=== PATIENT | male | born 1965 | race Caucasian/White ===

== ENCOUNTER 2016-11-01 04:57 | Inpatient (IN) | payer SELFPAY ==
[~2016-11-01] VITALS: Ht 167.6 cm; Wt 65.4 kg
--- NOTE | ~2016-11-01 | HP ---
ADMIT: 11/01/2016 RM/LOC: 302 [facility] MR#: [id number] [address] [address] VIDHI WEBB [address] [place] [address] History and Physical SEX: M AGE: 51 : 1965 DATE OF SERVICE: CHIEF COMPLAINT: Chest pain. HISTORY OF PRESENT ILLNESS: The patient is a 51-year-old male, we were asked to see regarding an anterior ST-segment elevated myocardial infarction. The patient states that his chest pain began on Monday. He has been having some chest tightness and pain down his left arm. This was not accompanied with any shortness of breath, nausea, vomiting, or other symptoms. It has been going off and on since Monday and when he had his symptoms this morning and they did not improve, he presented to the emergency room. There, he had an EKG which demonstrated an acute anterior ST-segment elevated MT. We are not taking him to the director of cardiac cath lab. In speaking with the patient, he has no previous significant medical history. His cardiac risk factorsinclude the fact that he has had a sister and a father, who have had myocardial infarctions and he is a smoker. He is unaware of any other medical conditions he may have. There were no other complaints. PAST MEDICAL HISTORY: Negative for any surgeries or medical conditions. ALLERGIES: PENICILLIN. CURRENT MEDICATIONS: None. FAMILY HISTORY: Significant for a sister, who had a myocardial infarction and he also thinks may have had a stent and a father who had a myocardial infarction. There were several members with diabetes. SOCIAL HISTORY: The patient smokes 1/2 to 1 pack of cigarettes a day and has done so for 32 years. He has occasional alcohol use. He denies any drug use. He is . REVIEW OF SYSTEMS: Essentially negative other than the chest pain that he had starting on Monday. PHYSICAL EXAMINATION: VITAL SIGNS: Blood pressure 130s over 70s, heart rate in 70s, respirations 16, temperature afebrile. SKIN: [place], warm and dry. ADMIT: 11/01/2016 RM/LOC: 302 [facility] MR#: [id number] [address] [address] VIDHI WEBB [address] [place] [address] History and Physical SEX: M AGE: 51 : 1965 EYES: Sclerae clear. No xanthelasmas. ENT: Oral mucosa is pink and moist. No jugular venous distention or carotid bruits. CHEST: Respirations are even and unlabored. Lungs are clear to auscultation. HEART: Regular rate and rhythm. Normal S1, S2. No murmurs, rubs or gallops. ABDOMEN: Soft and nontender. MUSCULOSKELETAL: Gait is normal. EXTREMITIES: Peripheral pulses palpable. No clubbing, cyanosis or edema. PSYCHIATRIC: Alert and oriented. Mood and affect are appropriate. ASSESSMENT AND PLAN: Acute anterior ST-elevation myocardial infarction. We are going to take the patient to director of cardiac cath lab for further treatment. Keon Braun MD/ memo JOB #: [id number] CC: Keon Braun, Attending Physician Keon Braun, Family Physician
--- NOTE | ~2016-11-01 | ECH ---
Transthoracic Echocardiography Report (TTE) Demographics Patient Name VIDHI WEBB Date of Study 11/01/2016 Patient Number [id number] Visit Number [id number] Date of 1965 Room Number 302 Accession Number [id number] Gender Male Age 51 year(s) Referring King Keon Langford MD Ski Base Trimmer Karla Marshall [facility] Physician Physician Interpreting King Keon Langford MD Textile Screen Printer Physician Supervising Ordering Physician Richie Madera MD/NOY HERNANDEZ Nurse Stress [employer] Conclusions Summary Apical and subcostal images good quality, parasternal images fair. The estimated left ventricular ejection fraction is 40%. Segmental wall motion abnormalities noted. Mild mitral regurgitation by color Doppler. There is mild aortic regurgitation by color Doppler. Mild tricuspid regurgitation by color Doppler. There is mild pulmonary hypertension. The pulmonary pressure (RVSP) is 37 mmHg. Procedure Type of Study TTE procedure:Echo Complete SF. Procedure Date Date: 11/01/2016 Start: 11:11 AM Technical Quality: Adequate visualization Indications:Acute TN. Appropriate Use Criteria: 9 Height: 66 inches Weight: 150 pounds BSA: 1.77 m Rhythm: Within normal limits HR: 70 bpm BP: 129/93 mmHg Allergies - Penicillin. M-Mode/2D Measurements LV Diastolic Dimension: 4.73 cm LV Systolic Dimension: 3.54 cm LV Septum Diastolic: 1.08 cm LV PW Diastolic: 0.89 cm AO Root Dimension: 2.71 cm Cardiac Output: 2.73 l/min LA Dimension: 3.38 cm Cardiac Index: 1.54 l/min*m RV Diastolic Dimension: 2.72 cm LA volume index: 28 ml/m LVOT: 1.9 cm LVOT VTI: 13.78 cm RV Base: 3.1 cm LV Stroke volume: 39.05 ml RV Mid: 2.5 cm LV Stroke volume index: 22.06 ml/m RV Length: 6.9 cm TAPSE: 1.8 cm TDI-S': 12 cm/s Doppler Measurements AV Mean Gradient: 1.68 mmHg MV Peak E-Wave: 0.83 m/s LVOT Peak Velocity: 0.62 m/s MV Peak A-Wave: 0.68 m/s AV Area (Continuity):1.89 cm AV P1/2t: 428.3 msec MV P1/2t: 37.7 msec TR Velocity:2.84 m/s TR Gradient:32.16 mmHg MV Deceleration Time: 130 msec Estimated RAP:5 mmHg MV Area (PHT): 5.84 cm Estimated RVSP: 37 mmHg PV Peak Velocity: 0.57 m/s E' Septal Velocity: 0.13 m/s PV Peak Gradient: 1.3 mmHg Estimated PASP: 37.16 mmHg RA Area: 8.99 cm Findings Left Ventricle The left ventricle is normal in size . Diastolic assessment reveals normal relaxation. Right Ventricle Normal right ventricle structure and function. Left Atrium Normal left atrial size. Right Atrium Normal right atrial size. Mitral Valve Normal mitral valve structure and function. Mild mitral regurgitation by color Doppler. Aortic Valve Normal aortic valve structure and function. There is mild aortic regurgitation by color Doppler. Tricuspid Valve Normal tricuspid valve structure and function. Mild tricuspid regurgitation by color Doppler. There is mild pulmonary hypertension. The pulmonary pressure (RVSP) is 37 mmHg. Pulmonic Valve The pulmonic valve is not well visualized. Pericardial Effusion Epicardial fat pad noted. Miscellaneous Visualized portions of the aortic root and ascending aorta appear normal in size. Pleural Effusion No evidence of pleural effusion. Contractility Score LV regional wall motion:(0-Non visualized 1-Normal 2-Hypokinesis 3-Akinesis 4-Dyskinesis 5-Aneurysm) Signature
--- NOTE | ~2016-11-01 | CATH ---
Cardiac Diagnostic + PCI Report Demographics Patient Name JON Neil Gender Male Date of 1965 Age 51 year(s) Patient Number [id number] Date of Study 11/01/2016 Visit Number [id number] Room Number 302 Corporate ID Ht 167.64 cm Wt 68.04 kg Accession Number [id number] BSA 1.77 m kg/m Referring Richie Madera Primary Physician Physician Performing King Keon Langford MD Secondary Physician Physician Richie Madera MD Diagnostic King Keon Langford MD Assisting Physician Physician Interventional Richie Madera Physician Glove Cleaner Physician Findings and Conclusions Diagnostic Findings and Conclusion Single vessel coronary artery disease with 100% midLAD stenosis. Diagnostic Recommendations Immediate PCI of mLAD. Interventional Findings and Conclusion Successful PCI of mid LAD with a 3.0 x 16mm Synergy drug eluting stent. There was residual plaque with possible thrombus just proximal to the stent. Another 3.5 x 12mm Synergy was placed more proximally in an overlapping fashion. There was transient slow flow after the second stent which responded to intra coronary adenosine. Interventional Recommendations technician terminal and repeater dual antiplatelet therapy, cardiomyopathy treatment, and aggressive risk factor modification. Procedure Description The patient was brought to the diagnostic cardiac catheterization laboratory by freezer laboratory technician personal. Physician deemed procedure as EMERGENT. The planned puncture-incision site(s) were clipped and prepped with ChloraPrep and draped in the usual sterile manner. Conscious sedation, supplemental oxygen, and pain control medications were delivered by a registered nurse under physician guidance. Surface ECG rhythm, blood pressure measurement, and pulse oximetry were monitored throughout the procedure. Arterial access. The right radial access site was infiltrated with lidocaine. The vessel was entered with the Seldinger technique. A 6F sheath was advanced into the vessel and used for catheter placement. Selective left coronary angiography. A JL3.5 catheter was advanced into the left coronary vessel ostium under Fluoroscopic guidance. Contrast was injected by hand. Images were obtained in multiple projections. Selective right coronary angiography. A JR4 catheter was advanced into the right coronary vessel ostium under fluoroscopic guidance. Contrast was injected by hand. Images were obtained in multiple projections. Left heart catheterization with ventriculography. A JR4 catheter was advanced across the aortic valve to the left ventricle under fluoroscopic guidance. Resting hemodynamics were obtained. With the catheter at the left ventricular apex, contrast was injected. Images were obtained in VILLAR projection. Post-ventriculography LV pressure was obtained. The catheter was gradually withdrawn into the aorta with continuous pressure recording. Angioplasty and Stent Placement: An EBU 3.5 guiding catheter was used to intubate the vessel. A Prowater 0.14 wire was then used to cross the lesion into the Diagonal branch. A 2.5 x 12 Emerge balloon catheter was placed across the lesion and inflated. The balloon catheter was then removed. A Luge 0.14 wire was then used to cross the lesion into the LAD. A 3.0 x 16 Synergy Drug Eluting Stent was placed and inflated. The stent balloon catheter was removed. A 3.5 x 12 Synergy Drug Eluting Stent was placed and inflated. The stent balloon catheter was removed. Post placement angiograms were performed. Hemostasis: The sheath was removed and a TR Band was placed. Hemostasis was achieved. The patient was transferred to the ICU nursing floor via cart accompanied by a nurse. The patient left the laboratory in stable condition. Procedure Procedure Type Diagnostic procedure:Angiography:, Coronary Angios w/[facility] PCI procedure:Drug Eluting Coronary Stent:, LAD The procedure was explained in detail to the patient. Risks, complications and alternative treatments were reviewed. Written consent was obtained. Medications Reviewed with Patient prior to Procedure. Complications: No Complication. Angiographic Findings Dominance: Right Cardiac Arteries and Lesion Findings LMCA: Normal (0% Stenosis). LAD: Abnormal. Lesion on Mid LAD: Proximal subsection.100% stenosis 24 mm length reduced to 0%. Pre procedure JOSE 0 flow was noted. Post Procedure JOSE III flow was present. The guidewire cross was successful.The lesion was diagnosed as a high risk lesion.Culprit lesion. Devices used - PROWATER WIRE 0.014" X 180CM. Number of passes: 1. - CATH BAL RX EMERGE 2.5X12. 1 inflation(s) to a max pressure of: 8 jeanie. - LUGE WIRE 0.014" X 180CM. Number of passes: 1. - CATH STENT SYNERGY 3.0 X 16. 1 inflation(s) to a max pressure of: 16 jeanie. - CATH STENT SYNERGY 3.5 X 12. 2 inflation(s) to a max pressure of: 14 jeanie. LCx: Normal (0% Stenosis). RCA: Normal (0% Stenosis). Coronary Tree Procedure Data Procedure Date Date: 11/01/2016Start: 05:35 AMEnd: 06:47 AM Entry Locations - Percutaneous access was performed through the Right Radial artery (Primary location). A 6 Fr sheath was inserted. Hemostasis was successfully obtained using a TR band. Procedure Medications Order and Administration + + +--------+ + !Time !Medication !Dosage !Route ! + + +--------+ + !11/01/2016 !SF Radial Cocktail: 200mcg Nitro, 2.5 ! !I.A. ! !05:38 AM !mg Verapamil, 5000u Heparin ! ! ! + + +--------+ 11/01/2016 !Versed !mg !I.V. ! !05:45 AM ! ! ! ! + + +--------+ 11/01/2016 !Sodium Chloride !10 ml !I.V. ! !05:45 AM ! ! ! ! + + +--------+ + !11/01/2016 !Heparin (ACC_3) !2000 !I.V. ! !05:56 AM ! !units ! ! + + +--------+ + !11/01/2016 !Sodium Chloride !10 ml !I.V. ! !05:56 AM ! ! ! ! + + +--------+ + !11/01/2016 !Brilinta (Ticagrelor) (ACC_20) !180 mg !P.O. ! !06:00 AM ! ! ! ! + + +--------+ + !11/01/2016 !Fentanyl !50 mcg !I.V. ! !06:03 AM ! ! ! ! + + +--------+ + !11/01/2016 !Oxygen !2 l/min !NC ! !06:05 AM ! ! ! ! + + +--------+ + !11/01/2016 !Nitroglycerin !200 mcg !I.V. ! !06:10 AM ! ! ! ! + + +--------+ + !11/01/2016 !Heparin (ACC_3) !2000 !I.V. ! !06:18 AM ! !units ! ! + + +--------+ + !11/01/2016 !Adenosine (IC) !120 mcg !I.C. ! !06:23 AM ! ! ! ! + + +--------+ + !11/01/2016 !Adenosine (IC) !120 mcg !I.C. ! !06:23 AM ! ! ! ! + + +--------+ + !11/01/2016 !Integrilin (ACC_7) !6.2 !I.V. bolus ! !06:27 AM ! ! ! ! + + +--------+ + !11/01/2016 !Integrilin (ACC_7) !11 !I.V. drip ! !06:28 AM ! ! ! ! + + +--------+ + Devices Used - A6 FrCATH 6FR FL3.5 CATHETER 100CMwas used for:LeftsideCoronary Angios. - A6 FrCATH 6F FR4 CATHETER 100CMwas used for:RightsideCoronary Angios. - A6 FrGUIDE CATHETER 6FR EBU 3.5 100CMwas used for:LeftsideLAD Intervention. Contrast Material - Isovue 840730 ml Fluoroscopy Time: Diagnostic: 15:00 minutes. Total: 15:00 minutes. Fluoroscopy Dose: Diagnostic: 1291 mGy. Total: 1291 mGy. Estimated Blood Loss: 15 ml. Medical History Allergies - Penicillin. Risk Factors The patient risk factors include:last creatinine: 1.2 mg/dl and creatinine clearance: 70.87 ml/min. Admission Data Admission Date: 11/01/2016 Admission Time: 05:27 AM Insurance Payors: None. [place] LV function assessed as:Abnormal. Ejection Fraction - 11/01/2016 - Method: LV gram. EF%: 25. LVA Segment Contractility 1 - Normal 3 - Mild 5 - Severe 7 - Dyskinesis hypokinesis hypokinesis 2 - 4 - Moderate 6 - Akinesis 8 - Aneurysm Hypokinesis hypokinesis Hemodynamics Condition: Rest O2 Consumption: Estimated: 206.48Heart Rate: 62 bpm Pressures (mmHg) +-----+ + !Site !Pressure ! +-----+ + !AO !105/23 (54) ! +-----+ + !LV !102/2 ,19 ! +-----+ + !AO !111/72 (91) ! +-----+ + !LV !111/2 ,16 ! +-----+ + !AO !96/61 (80) ! +-----+ + !LV !111/4 ,37 ! +-----+ + !AO !106/63 (88) ! +-----+ + !LV !100/7 ,24 ! +-----+ + Valve Gradients and Areas + +---------+---------+---------+ +---------+ + !Valve !Peak !Mean !Area !Index !Flow !Source ! + +---------+---------+---------+ +---------+ + !Aortic !0 !0 ! ! ! ! ! + +---------+---------+---------+ +---------+ + !Aortic !0 !0 ! ! ! ! ! + +---------+---------+---------+ +---------+ + Shunts Oxygen Values O2 Consumption 206.48 Discharge Data Discharge Date: 11/03/2016 Hospital Status: Inpatient Signatures
--- NOTE | 2016-11-01 06:42 | ER ---
ADMIT: 11/01/2016 RM/LOC: 302 [facility] MR#: [id number] [address] [address] VIDHI WEBB [address] [place] [address] Emergency Room Report SEX: M AGE: 51 : 1965 DATE: 11/01/2016 CHIEF COMPLAINT: Chest pain. HISTORY OF PRESENT ILLNESS: The patient is a 51-year-old male, developed stuttering, substernal chest discomfort radiating to left arm associated with diaphoresis on Monday, much worse tonight with inability to sleep. Coronary risk factors include smoking, gender, and family history of premature heart disease in father and sister. Mother secondary to brain aneurysm. ALLERGIES: NONE. MEDICATIONS: None. ILLNESSES: Poor dental hygiene. PAST SURGICAL HISTORY: Negative except multiple dental extractions. SOCIAL HISTORY: Single, smokes at least 1/2 pack per day. Occasional alcoholic beverage, none recently. No illicit drugs. FAMILY HISTORY: Positive for premature heart disease in father and sister, brain aneurysm in mother. Otherwise, negative for coagulopathy. REVIEW OF SYSTEMS: A 12-point review of systems negative for all other systems, illnesses, or operations except as outlined above. PHYSICAL EXAMINATION: VITAL SIGNS: Temp 98.4, pulse 72, respirations 18, BP 150/106, SaO2 of 99%. GENERAL: Nontoxic, non-diaphoretic without jaundice or icterus. HEENT: Normocephalic. No evidence of epistaxis, rhinorrhea, or otorrhea. NECK: Supple without lymphadenopathy or thyromegaly. CHEST: Clear. Breath sounds equal. HEART: Regular rate and rhythm without murmur, gallop, or edema. ABDOMEN: Soft, scaphoid, nontender, nondistended without mass or megaly. Bowel sounds hypoactive. EXTREMITIES: No evidence of Homans sign, synovitis, or dermatitis. NEURO: EOMI. PERRLA. No evidence of drift, dysarthria, or ataxia. Gait normal. MENTAL STATUS: Alert, oriented, and cooperative without delusions, hallucinations, or abnormal thought content. MEDICAL DECISION MAKING: EKG shows sinus rhythm with acute anterior ST- elevation with inferior reciprocal depression consistent with acute anterior wall GA. Chest x-ray, negative. Labs pending. The patient was started on STEMI ADMIT: 11/01/2016 RM/LOC: 302 [facility] MR#: [id number] [address] [address] VIDHI WEBB [facility] [place] [address] Emergency Room Report SEX: M AGE: 51 : 1965 protocol with aspirin 325 mg chewed, metoprolol 25 mg p.o., heparin 5000 mg push, nitroglycerin 0.4 mg sublingual x3 and morphine 4 mg IVP. Discussed case with Dr. Braun on arrival, he evaluated in the ER and agreed. analytical laboratory technician was mobilized on arrival and taken to laborer heading within 30 minutes of arrival. Due to the patient's presentation, findings, and intervention, 30 minutes of critical care is warranted. DIAGNOSES: Acute anterior wall myocardial infarction. RECOMMENDATION: Emergent PCI by Dr. Braun. ADMISSION/DISCHARGE CONDITION: Critical. Scottie Rollins MD/ filil JOB #: [id number] CC: Keon Braun MD, Attending Physician Keon Braun MD, Family Physician
[2016-11-04] MEDS ORDERED: MOTRIN-DPS400 MG PO (16:33)
[2016-11-04] MEDS ORDERED: ASPIR-LOW81 MG PO (16:33)
[2016-11-04] MEDS ORDERED: BRILINTA90 MG PO (16:33)
[2016-11-04] MEDS ORDERED: ALDACTONE DPS25 MG PO (16:33)
[2016-11-04] MEDS ORDERED: COREG DPS6.25 MG PO (16:34)
[2016-11-04] MEDS ORDERED: CRESTOR20 MG PO (16:34)
[2016-11-04] MEDS ORDERED: NITROSTAT0.4 MG SL (16:34)
[2016-11-04] MEDS ORDERED: VASOTEC DPS2.5 MG PO (16:34)
--- NOTE | 2016-11-17 16:58 | DS ---
ADMIT: 11/01/2016 RM/LOC: 302 [facility] MR#: [id number] [address] [facility] [place], [place] [address] VIDHI WEBB [address] [place] [address] General Discharge Summary SEX: M AGE: 51 : 1965 ADMISSION DATE: 11/01/2016 DISCHARGE DATE: 11/03/2016 REASON FOR ADMISSION: Chest pain. Ibeth Hernandez RN, scribing for Dr. Keon Braun. PROCEDURES PERFORMED: 1. On 11/01/2016, by Dr. Keon Braun, selective coronary angiography with left heart catheterization. 2. On 11/01/2016, by Dr. Javon Quiroz PCI of the left anterior descending artery with drug-eluting stent. FINAL DIAGNOSES: 1. Anterior ST elevated myocardial infarction status post primary PCI of LAD with 2 drug-eluting stents. 2. Tobacco abuse. 3. Ischemic cardiomyopathy, ejection fraction 40% on 11/02/2016. HOSPITAL COURSE: Vidhi is a 51-year-old gentleman, who presented to the [facility] with complaints of chest discomfort on the morning of 11/01/2016. EKG demonstrated anterior ST elevated myocardial infarction. He reports that his symptoms actually began the day prior and he was having chest tightness off and on, radiating down his left arm, but denied any shortness breath, nausea, or vomiting or any other symptoms. On Monday morning, he continued to have symptoms with no improvement, so he walked to the emergency room from his house several blocks away. The EKG was performed, demonstrating ST elevated OR, anterior and so he was taken emergently to the cardiac catheterization lab for further evaluation and treatment. Lab work had been drawn in the emergency room, but because of ST elevation, he was taken before lab was completed. He did have history of tobacco abuse, but no drug use. He had no prior history of coronary artery disease. Lab work did come up around the start of the procedure with a white blood cell count of 13.5, hemoglobin of 17.0, hematocrit 49.0, and platelets of 286. Sodium was 142, potassium 4.7, chloride 109, BUN 12, glucose 158, AST 18, and ALT 17. Recheck of all those labs remained stable throughout the hospital course. Other lab work obtained included cardiac enzymes. CK and MB were negative initially at 126, MB of 2.2. His troponin was mildly elevated at 0.136 and was not checked again during the hospital course given known ST elevation after that point. Recheck of the CK and MB as well as relative index were done. CK peak on second set was 3639, MB peak was 237 on second set with the peak relative index of 6.5. Last CK before discharge was 1269, MB 64.1, and relative index of 5.1. Chest x-ray did not show any significant acute changes. Cardiac catheterization was performed and this did demonstrate 100% mid LAD stenosis where successful PCI of mid LAD with 3.0 x 16 mm Synergy stent was placed to resume a JOSE-3 flow. He did have some residual plaque and possible thrombus proximal to the stent, so another 3.5 x 12 mm drug- eluting stent was placed more proximally in an overlapping fashion. After the second stent, he did have some transient slow flow, and so intracoronary ADMIT: 11/01/2016 RM/LOC: 302 [facility] MR#: [id number] [address] [facility] [place], [place] [address] VIDHI WEBB [address] [place] [address] General Discharge Summary SEX: M AGE: 51 : 1965 adenosine was used which he responded well to with a good flow at that point. He was on Integrilin postprocedure and dual anti-platelet therapy was initiated with Brilinta and aspirin. He was admitted to ICU with radial T band placed on his wrist per protocol until hemostasis was obtained. He was placed on IV fluids for hydration for 10 hours. Other medications initiated included Crestor 20 p.o. daily, Aldactone 12.5 p.o. daily, enalapril 2.5 b.i.d., and Coreg 3.125 p.o. b.i.d. Integrilin was continued for 12 hours after time of initiation and he was on no higher dose of aspirin other than 81 mg a day. He did get loading dose of Brilinta in the cardiac catheterization lab and with orders to start regular dosing on following day. He did have some nausea and required some Zofran, but otherwise tolerated well. On 11/02/2016, cholesterol was checked showing a total cholesterol of 157, triglycerides 113, HDL 50, and LDL of 84. Echocardiogram on that day showed EF of 40% with mild MR and AR. Vital signs were stable. He was afebrile. Weight was stable as well as I and O's. He had no complaints of chest discomfort at that point. Coreg was increased to 6.25 mg p.o. b.i.d. as his blood pressure would tolerate. He was given a lot of education regarding cardiac rehab as well as tobacco cessation as well as the importance of dual anti-platelet therapy as well as other medications prior to discharge. On 11/03/2016, he was deemed appropriate for discharge to home in stable condition. Vital signs were stable. Social Work was contacted for community assistance program to help with medical bills as well as medications. MEDICATIONS ON DISCHARGE: Include: 1. Aldactone 12.5 p.o. daily. 2. Aspirin 81 daily. 3. Brilinta 90 mg p.o. b.i.d. 4. Coreg 6.25 p.o. b.i.d. 5. Crestor 20 mg p.o. at bedtime. 6. Vasotec 2.5 p.o. b.i.d. 7. Nitroglycerin per protocol. Home care instructions included a low-fat diet, restrict or movement activity and lifting greater than 10 pounds for 3 days. He would follow up with Dr. Javon Quiroz on November 10 at 2:15 p.m. and cardiac rehab nurse would call him at home to set up appointment for following with them as well. Ibeth Hernandez RN / Keon Braun MD / memo JOB #: [id number] CC: Keon Braun MD, Attending Physician Keon Braun MD, Family Physician
== END 2016-11-03 09:58 | disposition home or self-care (01) | DRG 247 ==
LOC: ER 04:57 → 3ICU 05:27
PROVIDERS: ADMIT Internal Medicine
PROC: 027035Z Dilation of Coronary Artery, One Artery with Two Drug-eluting Intraluminal Devices, Percutaneous Approach (ICD-10-PCS; principal; 2016-11-01)
PROC: B2111ZZ Fluoroscopy of Multiple Coronary Arteries using Low Osmolar Contrast (ICD-10-PCS; principal; 2016-11-01)
PROC: 4A023N7 Measurement of Cardiac Sampling and Pressure, Left Heart, Percutaneous Approach (ICD-10-PCS; principal; 2016-11-01)
DX: I21.09 ST elevation (STEMI) myocardial infarction involving other coronary artery of anterior wall (principal); F17.210 Nicotine dependence, cigarettes, uncomplicated; I25.5 Ischemic cardiomyopathy; I25.10 Atherosclerotic heart disease of native coronary artery without angina pectoris; Z82.49 Family history of ischemic heart disease and other diseases of the circulatory system; Z23 Encounter for immunization